=== PATIENT | female | born 1995 | race Caucasian/White ===

== ENCOUNTER 2017-07-04 15:00 | Emergency (ER) | payer SELFPAY ==
[2017-07-04 16:12] LABS: ABS Basophils 0 10^3/ul (0-0.2); ABS Eosinophils 0.1 10^3/ul (0-0.6); ABS Lymphocytes 3.5 10^3/ul (1.0-4.8); ABS Monocytes 0.6 10^3/ul (0-0.8); ABS Neutrophils 3.3 10^3/ul (1.5-7.7); ABS Nucleated RBC 0 10^3/ul; Eosinophil % 1.2 % (0-6); Hematocrit 40 % (35-47); Hemoglobin 13.7 g/dl (12.0-16.0); Lymphocyte % 46.6 % (25-47); Mean Corpuscular HGB Conc 34 g/dl (31-36); Mean Corpuscular Hemoglobin 29 pg (27-31); Mean Corpuscular Volume 86 fL (80-97); Mean Platelet Volume 8.6 um3 (7.4-10.4); Nucleated Red Blood Cells % 0; Platelet Count 253 10^3/ul (150-450); Red Blood Count 4.68 10^6/ul (4.0-5.4); Red Cell Distribution Width 13 % (10.5-15); White Blood Count 7.5 10^3/ul (3.5-10.8)
[2017-07-04 16:31] LABS: EGFR Non-African American 132.5 (>60)
--- NOTE | 2017-07-04 16:38 | ED ---
GI/ HPI - HPI Summary HPI Summary: 22-year-old female presents with bilateral lower abdominal pain for the past day. States continues to get worse. She denies any nausea vomiting. She states it is worse when she moves. She denies any diarrhea but admits to constipation. she had a bowel movement this arm. She states she is currently on nexplonan. States she normally gets her period but she has not had it. She states she does have painful periods and this pain seems similar but she is not currently bleeding. She denies any abnormal vaginal discharge. She states the back pain is lower. she denies any flank pain. She denies any injury. Denies any loss of bladder or bowel. She denies saddle anesthesia. She denies any fevers. She states that she has been having constant cramp like pain. - History of Current Complaint Chief Complaint: EDAbdPain Time Seen by Provider: 07/04/17 15:36 Stated Complaint: ABDOMINAL PAIN Pain Intensity: 7 - Allergy/Home Medications Allergies/Adverse Reactions: Allergies Allergy/AdvReac Type Severity Reaction Status Date / Time codeine Allergy Anxiety Verified 07/04/17 15:08 pineapple Allergy Eyes Verified 07/04/17 15:08 Itchy/Swollen/Red/Watery PMH/Surg Hx/FS Hx/Imm Hx Respiratory History: Denies: Hx Asthma Infectious Disease History: No Infectious Disease History: Denies: Traveled Outside the [place] in Last 30 Days - Family History Known Family History: Negative: Diabetes - Social History Substance Use Type: Reports: None Smoking Status (MU): Never Smoked Tobacco Review of Systems Negative: Fever Negative: Chest Pain Negative: Shortness Of Breath Positive: Abdominal Pain. Negative: Vomiting, Diarrhea, Nausea All Other Systems Reviewed And Are Negative: Yes Physical Exam Triage Information Reviewed: Yes Vital Signs On Initial Exam: Initial Vitals Temp Pulse Resp BP Pulse Ox 97.8 F 76 16 129/68 99 07/04/17 15:06 07/04/17 15:06 07/04/17 15:06 07/04/17 15:06 07/04/17 15:06 Vital Signs Reviewed: Yes Appearance: Positive: Well-Appearing Skin: Positive: Warm, Dry Head/Face: Positive: Normal Head/Face Inspection Eyes: Positive: Normal, Conjunctiva Clear ENT: Positive: Pharynx normal Respiratory/Lung Sounds: Positive: Clear to Auscultation, Breath Sounds Present Cardiovascular: Positive: Normal, RRR Abdomen Description: Positive: Soft, Other: - tenderness LLQ and RLQ Bowel Sounds: Positive: Present Musculoskeletal: Positive: Normal Neurological: Positive: Normal Psychiatric: Positive: Normal Diagnostics - Vital Signs Vital Signs Temp Pulse Resp BP Pulse Ox 07/04/17 15:06 97.8 F 76 16 129/68 99 - Laboratory Lab Results: Lab Results 07/04/17 07/04/17 Range/Units 15:53 15:53 WBC 7.5 (3.5-10.8) 10^3/ul RBC 4.68 (4.0-5.4) 10^6/ul Hgb 13.7 (12.0-16.0) g/dl Hct 40 (35-47) % MCV 86 (80-97) fL MCH 29 (27-31) pg MCHC 34 (31-36) g/dl RDW 13 (10.5-15) % Plt Count 253 (150-450) 10^3/ul MPV 8.6 (7.4-10.4) um3 Neut % (Auto) 43.9 (38-83) % Lymph % (Auto) 46.6 (25-47) % [place] % (Auto) 8.0 H (0-7) % Eos % (Auto) 1.2 (0-6) % Baso % (Auto) 0.3 (0-2) % Absolute Neuts (auto) 3.3 (1.5-7.7) 10^3/ul Absolute Lymphs (auto) 3.5 (1.0-4.8) 10^3/ul Absolute Monos (auto) 0.6 (0-0.8) 10^3/ul Absolute Eos (auto) 0.1 (0-0.6) 10^3/ul Absolute Basos (auto) 0 (0-0.2) 10^3/ul Absolute Nucleated RBC 0 10^3/ul Nucleated RBC % 0 Sodium 139 (139-145) mmol/L Potassium 4.1 (3.5-5.0) mmol/L Chloride 106 (101-111) mmol/L Carbon Dioxide 28 (22-32) mmol/L Anion Gap 5 (2-11) mmol/L BUN 10 (6-24) mg/dL Creatinine 0.58 (0.51-0.95) mg/dL Est GFR ( Amer) 170.5 (>60) Est GFR (Non-Af Amer) 132.5 (>60) BUN/Creatinine Ratio 17.2 (8-20) Glucose 85 (70-100) mg/dL Calcium 8.8 (8.6-10.3) mg/dL Total Bilirubin 0.30 (0.2-1.0) mg/dL AST 12 L (13-39) U/L ALT 12 (7-52) U/L Alkaline Phosphatase 68 (34-104) U/L C-React Prot High Sens 0.68 mg/L Total Protein 6.6 (6.4-8.9) g/dL Albumin 4.3 (3.2-5.2) g/dL Globulin 2.3 (2-4) g/dL Albumin/Globulin Ratio 1.9 (1-3) Lipase 18 (11.0-82.0) U/L Beta HCG, Quant < 0.60 mIU/mL Result Diagrams: 07/04/17 15:53 07/04/17 15:53 Lab Statement: Any lab studies that have been ordered have been reviewed, and results considered in the medical decision making process. GIGU Course/Dx - Course Course Of Treatment: 22-year-old female presents with bilateral lower abdominal pain for the past day. States continues to get worse. She denies any nausea vomiting. She states it is worse when she moves. She denies any diarrhea but admits to constipation. she had a bowel movement this arm. She states she is currently on nexplonan. States she normally gets her period but she has not had it. She states she does have painful periods and this pain seems similar but she is not currently bleeding. She denies any abnormal vaginal discharge. She states the back pain is lower. she denies any flank pain. She denies any injury. Denies any loss of bladder or bowel. She denies saddle anesthesia. She denies any fevers. She states that she has been having constant cramp like pain. on exam tenderness bilateral lower quadrants. neg rovsings. labs wnl. crp normal. on pelvic tenderness right adenxa area. no CMT. has blackish discharge present. will wait for culture to treat for such. will sign out to Daphne pending u/s and labs - Diagnoses Differential Diagnoses - Female: Appendicitis, Ovarian Cyst, Urinary Tract Infection Provider Diagnoses: Abdominal pain Discharge - Sign-Out/Discharge Documenting (check all that apply): Sign-Out Patient Signing out patient TO: Daphne Solis - Discharge Plan Condition: Stable Disposition: HOME Referrals: No Primary Care Phys,NOPCP [Primary Care Provider] - - Billing Disposition and Condition Condition: STABLE Disposition: HOME
[2017-07-04 17:38] LABS: Urine Appearance Cloudy; Urine Blood Negative (Negative); Urine Color Yellow; Urine Ketones Negative (Negative); Urine Protein Negative (Negative); Urine Specific Gravity 1.019 (1.010-1.030); Urine Urobilinogen Negative (Negative)
--- NOTE | 2017-07-04 17:42 | RAD ---
INDICATION: Right worse than left pelvic pain COMPARISON: None. TECHNIQUE: Real-time transabdominal only ultrasound examination of the female pelvis including grayscale and Doppler color flow imaging. FINDINGS: Uterus: The uterus is normal in size and echogenicity measuring 7.0 x 3.3 x 4.5 cm. The endometrial stripe is smooth and uniform measuring 3 mm in thickness. Ovaries: The right and left ovary measure 3.2 x 1.4 x 2.0 cm and 4.4 x 2.1 x 2.8 cm, respectively. Normal arterial and venous waveforms are identified. In the left ovary there is a mostly anechoic and avascular structure measuring 2.5 x 1.8 x 2.5 cm most consistent with a dominant follicle. There is no free fluid in the cul-de-sac. IMPRESSION: Normal and age-appropriate pelvic ultrasound including a dominant follicle in the left ovary.
[2017-07-04] MEDS ORDERED: Ibuprofen TAB* 600 MG PO ONE (18:19)
--- NOTE | 2017-07-04 18:45 | ED ---
Progress - Progress Note Progress Note: Pt signed out by Della Arredondo PA-C pending TVUS. Results indicate an enlarged follicle in the left ovary however patient presented with right lower quadrant pain. Upon reexamination, the patient has mild tenderness in the left lower quadrant without rebounding and equivocal right lower quadrant tenderness. Her pelvic exam was Rachael performed by Della Arredondo (see original document for details ) - negative CMT with mild right adnexal tenderness. PERRL is [place], there was no concern for pelvic infection and patient denies vaginal discharge, fever , chills, nausea, vomiting. She is sexually active and her hCG is negative and she has Nexplanon in place over the past year. This was placed to treat her dysmenorrhea which has worked well. She also has a history of ovarian cysts however these were not identified on transvaginal ultrasound nor was a torsion of the ovary. Her urinalysis is completely negative and her serum labs are unremarkable for acute pathology including but not limited to infection and inflammation. Upon physical examination, patient is quite tender over her right SI joint as well as her iliopsoas muscle and gluteal muscle. After bridging, it is noted her right leg is slightly longer than her left. There is no flank pain with CVA tapping and lumbar spine is nontender to palpation. She does not appear to have any gross deformity of her musculoskeletal system and is moving her lower extremities without difficulty however she does report some discomfort with hip flexion and abduction. Upon reviewing all tests physical exams and patient's history of present illness which is positive for history of "back issues" (has had intermittent back pain for a few years now) and currently carrying large items such as trays of food at work (bending, lifting, twisting, etc) and a history of "popping her hips" while speed walking in the past, it was decided her pain is most likely coming from musculoskeletal imbalance with strain. (ie. sacroiilitis, iliopsoaos strain, lumbar strain). She declined pain medication while she was here initially and states her pain has been 7 out of 10. She is open to trying some ibuprofen and a Lidoderm pain patch at this point. Will also offer muscle relaxers to take at home to help her with sleeping as needed. She initially declined meds as she reports she doesn't like to take pills unless she needs them. Conversation with mom as well who agrees with plan. They are both aware that without doing a CT scan we cannot visualize additional organs in the abdomen and pelvis however given her story did not feel it was necessary at this time. Patient and mom agree with refraining from this test at this point in time also and patient will return to the emergency department if danger signs or symptoms present. She will seek further care through physical therapy and possibly chiropractic. She will obtain the services by self referral and/or through [facility] for appropriate follow-up care. Additionally, given mom's history of cervical dysplasia, endometriosis and both of their history of dysmenorrhea as well as patient's left enlarged ovarian follicle, patient will have close follow-up with gynecology. Dispo: home Condition: stable Course/Dx - Course Course Of Treatment: 22-year-old female presents with bilateral lower abdominal pain for the past day. States continues to get worse. She denies any nausea vomiting. She states it is worse when she moves. She denies any diarrhea but admits to constipation. she had a bowel movement this arm. She states she is currently on nexplonan. States she normally gets her period but she has not had it. She states she does have painful periods and this pain seems similar but she is not currently bleeding. She denies any abnormal vaginal discharge. She states the back pain is lower. she denies any flank pain. She denies any injury. Denies any loss of bladder or bowel. She denies saddle anesthesia. She denies any fevers. She states that she has been having constant cramp like pain. on exam tenderness bilateral lower quadrants. neg rovsings. labs wnl. crp normal. on pelvic tenderness right adenxa area. no CMT. has blackish discharge present. will wait for culture to treat for such. will sign out to Daphne pending u/s and labs - Diagnoses Provider Diagnoses: Abdominal pain Discharge - Sign-Out/Discharge Documenting (check all that apply): Receiving Sign-Out Receiving patient FROM: Luann Arredondo - Discharge Plan Condition: Stable Disposition: HOME Patient Education Materials: Sacroiliitis (ED) Forms: *Work Release Referrals: [facility] @ [Outside] Additional Instructions: The cause of your pain today appears to be musculoskeletal in nature. It is suspected you have an Sacroiliac joint malalignment with surrounding muscle in balance and spasm. This may be treated with rest, heat, warm bathes, gentle stretches, ibuprofen 600mg every 6 hours with food, muscle relaxer at night and close follow-up with [facility] after seeing receiving urgent care physician assistant and/or physical therapy. Call tomorrow to schedule an appointment with both ([facility], [facility] for follow-up and chiropractor/physical therapy for an appointment as soon as possible). If your pain worsens in the meantime and/or you develop changes in urination or bowel habits, numbness, tingling or weakness in her lower extremities, return to the emergency department. Additionally, you were found to have an enlarged follicle in her left ovary. This may be treated with heat packs, warm bathes, castor oil packs and ibuprofen as well however close follow-up with [facility] and/or gynecology as advised. If this pain worsens and/or you develop heavy vaginal bleeding, fevers, chills, nausea vomiting or diarrhea, return to the emergency department. - Billing Disposition and Condition Condition: STABLE Disposition: HOME
[2017-07-04] MEDS ORDERED: Lidocaine PATCH 5%* 1 PATCH TRANSDERM SCH (19:00)
[2017-07-04 19:28] VITALS: BP 106/66
== END 2017-07-04 19:28 | disposition home or self-care (01) ==
LOC: ED 15:00
DX: R10.31 Right lower quadrant pain (principal); N83.02 Follicular cyst of left ovary; M54.9 Dorsalgia, unspecified; Z88.5 Allergy status to narcotic agent
CPT/HCPCS: 36415; 76830; 80053; 81003; 83690; 84702; 85025; 86141; 87480; 87491; 87510; 87591; 87661; 99283; A9270-GY